=== PATIENT | male | born 1990 | race Two or more races ===

== ENCOUNTER 2023-10-15 20:19 | Emergency (ER) | payer OTHER ==
[~2023-10-15] VITALS: Ht 167.6 cm; Wt 81.6 kg
[2023-10-15 20:34] VITALS: TEMP 98.1
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
--- NOTE | 2023-10-15 21:17 | NUR ---
Transported back from [place]
[2023-10-15] MEDS ORDERED: TDAP [DIPH/PERTUSSIS/TET] 0.5 ML VIAL IM ONE (21:38)
[2023-10-15] MEDS ORDERED: HYDROCODONE/APAP 5/325MG TABLET ONE (21:38)
[2023-10-15] MEDS: TDAP [DIPH/PERTUSSIS/TET] 0.5 ML VIAL IM ONE (21:47)
[2023-10-15] MEDS: HYDROCODONE/APAP 5/325MG TABLET PO ONE (21:48)
--- NOTE | 2023-10-15 22:00 | NUR ---
Frank stevenson in [facility] - 10/15/23 at 2201 by [email or web address] Transported to 327 via [facility]
--- NOTE | 2023-10-15 22:01 | NUR ---
Please disregard note above ([phone])
[2023-10-15] MEDS ORDERED: MORPHINE SULFATE INJ 4 MG/ML DISP.SYRIN ONE (22:26)
[2023-10-15] MEDS ORDERED: ONDANSETRON HCL/PF 4 MG/2 ML VIAL ONE (22:26)
[2023-10-15] MEDS ORDERED: PIPERACI/TAZO 3.375GM/D5W 50ML PB IV ONE (22:26)
[2023-10-15 22:31] LABS: BASOPHILS % (AUTO) 0.4 % (0.0-2.0); EOSINOPHILS % (AUTO) 0.1 % (0.0-6.0); HEMATOCRIT 46 % (39-51); HEMOGLOBIN 15.5 g/dL (13.5-17.5); LYMPHOCYTES # (AUTO) 1.3 K/uL (0.8-4.8); LYMPHOCYTES % (AUTO) 16.9 % (20.0-44.0); MEAN CORPUSCULAR HEMOGLOBIN 32 PG (26.0-33.0); MEAN CORPUSCULAR HGB CONC 33 g/dl (31.0-36.0); MEAN CORPUSCULAR VOLUME 96 fL (80-96); MONOCYTES # (AUTO) 0.6 K/uL (0.1-1.30); MONOCYTES % (AUTO) 7.1 % (2.0-12.0); NEUTROPHILS # (AUTO) 5.9 K/uL (1.8-8.9); NEUTROPHILS % (AUTO) 75.5 % (43.0-81.0); PLATELET COUNT (AUTO) 258 K/uL (150-450); RED BLOOD CELL COUNT(AUTO) 4.85 MIL/uL (4.5-6.0); RED CELL DISTRIBUTION WIDTH 13.1 % (11.5-15.0); WHITE BLOOD COUNT (AUTO) 7.8 K/uL (4.3-11.0)
[2023-10-15] MEDS: MORPHINE SULFATE INJ 2 MG/ML DISP.SYRIN IV ONE (22:31)
[2023-10-15] MEDS: ONDANSETRON HCL/PF 4 MG/2 ML VIAL IV ONE (22:31)
--- NOTE | 2023-10-15 22:31 | NUR ---
[facility] PAGED - AT [facility]
[2023-10-15] MEDS: PIPERACILLIN /TAZOBACTAM 3.375 G in IV D5W 50 ML IV ONE (22:33)
--- NOTE | 2023-10-15 22:34 | NUR ---
Frank stevenson in [facility] - 10/15/23 at 2234 by ELIZABETH [phone]
[2023-10-15 22:39] LABS: CALCIUM, SERUM 9.4 mg/dL (8.5-10.1); CREATININE 0.7 mg/dL (0.6-1.3); POTASSIUM 3.8 mmol/L (3.5-5.1)
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
--- NOTE | 2023-10-15 22:42 | NUR ---
SHIVA MANCUSO PAGED - AT [facility]
--- NOTE | 2023-10-15 22:44 | NUR ---
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
[2023-10-15 22:45] LABS: ALBUMIN 3.6 g/dL (3.4-5.0); BILIRUBIN,DIRECT 0.1 mg/dL (0.0-0.2); BILIRUBIN,TOTAL 0.6 mg/dL (0.2-1.0); TOTAL PROTEIN, SERUM 8.3 g/dL (6.4-8.2)
[2023-10-15 22:49] LABS: INR 1.04 (0.91-1.10); PARTIAL THROMBOPLASTIN TIME 24.5 SEC (24.3-34.3)
--- NOTE | 2023-10-15 22:49 | NUR ---
[facility] PAGED - NO OPTO
--- NOTE | 2023-10-15 22:50 | NUR ---
FAMILY ORTIZ MARTÍNEZ [phone]
--- NOTE | 2023-10-15 22:56 | NUR ---
[facility] TRAN[facility] PAGED - AT [facility]
--- NOTE | 2023-10-15 23:04 | NUR ---
[facility] PAGED - NO OPTO
[2023-10-16] MEDS ORDERED: LIDOCAINE 1%-EPI 1:100,000 20 ML VIAL ONE (00:07)
[2023-10-16] MEDS ORDERED: MORPHINE SULFATE INJ 4 MG/ML DISP.SYRIN ONE (00:57)
[2023-10-16] MEDS: MORPHINE SULFATE INJ 2 MG/ML DISP.SYRIN IV ONE (01:03)
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
--- NOTE | 2023-10-16 01:34 | NUR ---
[facility] CALLED FOR BLS GOING TO [facility] PER [facility] ETA - 45 MIN
--- NOTE | 2023-10-16 01:50 | NUR ---
Report given to Adria VAZQUEZ of [facility]
[2023-10-16 02:03] VITALS: BP 141/100; O2SAT 97
[2023-10-16] MEDS ORDERED: ERYTHROMYCIN BASE OPHTH 3.5 GM TUBE ONE (02:05)
[2023-10-16] MEDS: ERYTHROMYCIN BASE OPHTH 3.5 GM TUBE OP ONE (02:07)
--- NOTE | 2023-10-16 02:16 | NUR ---
[facility] AT BEDSIDE FOR TRANSFER TO [facility] FOR HIGHER LEVEL OF CARE
--- NOTE | 2023-10-16 02:33 | NUR ---
Transferred to [facility] via [facility]
== END 2023-10-16 02:34 | disposition short-term general hospital (02) ==
LOC: ER 20:25
DX: S02.32XA Fracture of orbital floor, left side, initial encounter for closed fracture (principal); S01.112A Laceration without foreign body of left eyelid and periocular area, initial encounter; H05.232 Hemorrhage of left orbit; M25.512 Pain in left shoulder; R00.0 Tachycardia, unspecified; Y04.2XXA Assault by strike against or bumped into by another person, initial encounter; Y93.89 Activity, other specified; Y92.89 Other specified places as the place of occurrence of the external cause; Y99.8 Other external cause status
CPT/HCPCS: 67715; 99291; 99292; 90471; 90715; 71045; 72125; 70450; 70486; 85025; 80048; 80076; 36415; 85730; 86850; 96365; 96375; 93005; 96376; 82962; J2270 ×2; J2405; J2543 ×2; J7060; J3490